=== PATIENT | female | born 1985 | race African-American/Black ===

== ENCOUNTER 2020-06-24 22:27 | Emergency (ER) | payer SELFPAY ==
[~2020-06-24] VITALS: Ht 170.2 cm; Wt 100.0 kg
== END 2020-06-24 22:38 | disposition left against medical advice (07) ==
LOC: ER 22:27 → CANBEDREQ 06-25 01:52
DX: R06.02 Shortness of breath (principal); J45.901 Unspecified asthma with (acute) exacerbation
CPT/HCPCS: 93005; 99283